=== PATIENT | female | born 1950 | race Asian ===

== ENCOUNTER 2024-09-08 20:47 | Emergency (ER) | payer OTHER ==
[~2024-09-08] VITALS: Ht 149.9 cm; Wt 55.2 kg
[2024-09-08 21:08] LABS: PLATELET COUNT (AUTO) 339 K/uL (150-450); RED BLOOD CELL COUNT(AUTO) 4.22 MIL/uL (4.00-5.20); RED CELL DISTRIBUTION WIDTH 13.5 % (11.5-14.5); WHITE BLOOD COUNT (AUTO) 5.5 K/uL (4.5-11.0)
[2024-09-08] MEDS ORDERED: 0.9% SODIUM CHLORIDE 10 ML SYRINGE IVP ONE (21:16)
[2024-09-08] MEDS ORDERED: SODIUM CHLORIDE 0.9% 100 ML ONE (21:17)
[2024-09-08] MEDS ORDERED: IOHEXOL 300 MG/ML 100 ML VIAL ONE (21:17)
[2024-09-08 21:26] LABS: TROPONIN I-HIGH SENSITIVITY 16 ng/L (<51)
[2024-09-08 21:38] LABS: APPEARANCE,URINE CLEAR (CLEAR); GLUCOSE, URINE (UA) NEGATIVE (NEGATIVE); LEUKOCYTE ESTERASE ,URINE NEGATIVE (NEGATIVE); NITRATE,URINE NEGATIVE (NEGATIVE); OCCULT BLOOD,URINE NEGATIVE (NEGATIVE); PH,URINE DRUG SCREEN 7.5 (5.0-8.0); SPECIFIC GRAVITIY, URINE 1.021 (1.003-1.030)
[2024-09-08 21:55] LABS: ASPARTATE AMINOTRANSFERASE 26 U/L (15-37); CALCIUM, TOTAL 8.3 mg/dL (8.8-10.5); CHOL/HDL RATIO 2.5 (3.9-5.7); CREATININE 0.84 mg/dL (0.60-1.30); GLOMERULAR FILTR. RATE CALC > 60 mL/min (>60); GLUCOSE,RANDOM 127 mg/dL (70-110); LDL CHOL (CALC.) 61 mg/dL (0-130); SODIUM SERUM 142 mmol/L (136-145); TOTAL PROTEIN, SERUM 7.2 g/dL (6.4-8.2); UREA NITROGEN, BLOOD 10 mg/dL (7-18)
[2024-09-08 22:00] LABS: SQUAMOUS EPITHELIAL CELL,UR Rare /LPF (None Seen)
[2024-09-08 22:01] LABS: AMPHET/METH SCREEN,URINE NEGATIVE (NEGATIVE); BARBITURATE SCREEN, URINE NEGATIVE (NEGATIVE); CANNABINOID SCREEN,URINE NEGATIVE (NEGATIVE); COCAINE SCREEN,URINE NEGATIVE (NEGATIVE); METHADONE SCREEN, URINE NEGATIVE (NEGATIVE)
[2024-09-08 22:02] LABS: ALCOHOL, URINE DRUG SCREEN NEGATIVE (NEGATIVE)
[2024-09-08] MEDS: LABETALOL HCL 5 MG/ML 20 ML VIAL IVP ONE (22:42)
[2024-09-09] MEDS: LABETALOL HCL 5 MG/ML 20 ML VIAL IVP ONE (00:14)
[2024-09-09 01:15] VITALS: BP 133/81; PULSE 61; RESP 18; TEMP 98.1; O2SAT 95
== END 2024-09-09 01:45 | disposition short-term general hospital (02) ==
LOC: EMS 20:47
DX: I61.0 Nontraumatic intracerebral hemorrhage in hemisphere, subcortical (principal); R53.1 Weakness; I10 Essential (primary) hypertension
CPT/HCPCS: 99291; 70496; 96374; 71045; 80061; 80053; 81001; 82962; 83036; 84484; 85025; 85610; 85730; 86850; 86900; 86901; 36415; 70498; 82948; 93005; 80307; 70450; 96376; J3490; J7050; Q9967